=== PATIENT | male | born 1985 | race Caucasian/White ===

== ENCOUNTER 2017-07-26 17:53 | Emergency (ER) | payer OTHER ==
[2017-07-26 19:50] LABS: Bilirubin Negative (Negative); Blood, Urine Negative (Negative); Clarity CLEAR (Clear); Glucose, Urine (Dipstick) Negative (Negative); Leukocyte Negative (Negative); Nitrite Negative (Negative); Protein, Urine (Dipstick) Negative (Neg-Trace); Specific Gravity, Urine 1.022 (1.002-1.036); Urobilinogen 0.2 mg/dL (0.2-1.0); pH, Urine 5.5 (5.0-9.0)
--- NOTE | 2017-07-26 21:05 | ULT ---
TESTICULAR ULTRASOUND: 07/26/17 HISTORY: Right sided testicular pain. Real time imaging of the right and left testes were performed. The right testis measures 4.4 and the left 4.4 cm in size. The right and left epididymal regions appear unremarkable. No testicular masses are identified, but there is slight heterogeneity to the echotexture of the right testicle as compare d to the left. DOPPLER EVALUATION WITH SPECTRAL ANALYSIS: Suggestion of some slight increased flow to the right testicle as compared to the left side. IMPRESSION: Findings that would suggest a right sided orchitis. POS: [id number]
[2017-07-27 22:52] LABS: Chlamydia by PCR Not Detected (NotDetected); GC by PCR Not Detected (NotDetected)
== END 2017-07-26 20:19 | disposition home or self-care (01) ==
LOC: ERS 17:53
DX: N45.2 Orchitis (principal); F17.220 Nicotine dependence, chewing tobacco, uncomplicated; Z79.899 Other long term (current) drug therapy
CPT/HCPCS: 76870; 81003; 87491; 87591; 93976